=== PATIENT | male | born 1995 | race African-American/Black ===

== ENCOUNTER 2024-02-06 13:29 | Emergency (ER) | payer SELFPAY ==
--- NOTE | 2024-02-06 14:26 | ER ---
Nurse's Notes [facility] Name: Thiago Orozco Age: 28 yrs Sex: Male : 1995 Arrival Date: 02/06/2024 Time: 13:29 Bed IW10 [facility] MD: Diagnosis: ED Course: 02/05 13:32 Patient arrived in ED. mr 13:32 [facility]andy Oden F[facility]-C [facility] kb 13:32 Elvi Ayala MD is Attending Physician. kb 13:56 Patient's name was called from ER lobby. No response. hb 14:25 Patient's name was called from ER lobby. No response. Unable to locate patient. Will hb disposition as left without being seen by a provider. Administered Medications: No medications were administered Outcome: 14:26 Patient left the ED. hb Signatures: Candy Oden FNP-C FNP-Ckb Rivera, Mary, Reg Reg Chaya Meyer, RN RN hb
== END 2024-02-06 14:26 | disposition left against medical advice (07) ==
LOC: ER 13:29
DX: Z02.9 Encounter for administrative examinations, unspecified (principal)